=== PATIENT | female | born 1930 | race Caucasian/White ===

== ENCOUNTER 2018-12-15 17:35 | Emergency (ER) | payer MEDICARE ==
[~2018-12-15] VITALS: Ht 165.1 cm; Wt 72.7 kg
[~2018-12-15 17:35] MED LIST: ASPI81TA26 PO; AZELASTINE OU; CARV3.12 PO; CENTTAB PO; COLA50CA3 PO; CORE25TA PO; DOCQ100C5 PO; FISHOIL PO; LISI10TA4 PO; LISIPOW PO; MECL-68 PO; MECL1CHW PO; MOVE FREE PO; PLAV1TAB2 PO; PLAVIX PO; POLY1POW4 PO; PRAV20TA2 PO; SENO1TAB PO; SIMV10TA2 PO; VICO5TA PO; VITMTA PO; ZYRT10CA5 PO; ZYRT10TA14 PO
[2018-12-15] MEDS ORDERED: NS 500 ML IV ONE (18:15)
--- NOTE | 2018-12-15 18:47 | REP ---
CT Head without contrast HISTORY: Vertigo COMPARISON: 05/05/2007 Areas of decreased attenuation are present in the periventricular and subcortical white matter. This represents small-vessel ischemic disease. There is no intraparenchymal hemorrhage, acute infarct, mass or midline shift. The ventricular system and cortical sulci are dilated consistent with mild volume loss. There is no extra cerebral collection. There is no fracture. The visualized sinuses are clear. IMPRESSION: 1. Small vessel ischemic disease. 2. Mild volume loss. Electronically Signed by Kvng Parra MD 12/15/2018 06:38 P
--- NOTE | 2018-12-15 18:49 | REP ---
Chest one-view Comparison: 09/18/2016 An increase interstitial markings is present in the lower lobes consistent with chronic interstitial change. Linear densities are present in the right lower lobe consistent with atelectasis or scar. The heart is normal in size. The pulmonary vasculature is normal in appearance. Impression: 1. Bibasilar chronic interstitial change. 2. Right lower lobe atelectasis or scar. Electronically Signed by Kvng Parra MD 12/15/2018 06:41 P
[2018-12-15 18:53] LABS: BASO % 0.5 % (0.0-1.0); EOS # 0.3 10^3/uL (0.0-0.50); EOS % 3.9 % (0.0-3.0); HEMATOCRIT 43.3 % (36.0-47.0); HEMOGLOBIN 14.3 g/dl (12.0-15.5); LYMPH # 2.2 10^3/uL (1.5-4.5); LYMPH % 33.2 % (24.0-44.0); MEAN CORPUSCULAR HEMOGLOBIN 31.2 pg (27.0-33.0); MEAN CORPUSCULAR VOLUME 94.5 fl (80.0-96.0); MONO # 0.6 10^3/uL (0.0-0.8); MONO % 8.4 % (0.0-5.0); NEUTROPHILS # 3.6 10^3/uL (1.8-7.7); NEUTROPHILS % 53.7 % (36.0-66.0); PLATELET COUNT, AUTOMATED 229 10^3/uL (150-450); RED BLOOD COUNT 4.58 10^6/uL (4.00-5.40); WHITE BLOOD COUNT 6.7 10^3/uL (4.0-10.0)
[2018-12-15 19:24] LABS: INFLUENZA A AMPLIFICATION NEGATIVE (NEGATIVE); INFLUENZA B AMPLIFICATION NEGATIVE (NEGATIVE)
[2018-12-15 19:30] LABS: BLOOD UREA NITROGEN 33 MG/DL (7-18); CALCIUM LEVEL 9.2 MG/DL (8.8-10.2); CARBON DIOXIDE LEVEL 29 MEQ/L (21-32); CHLORIDE LEVEL 105 MEQ/L (98-107); CK-MB VALUE MASS < 1.0 NG/ML (<3.6); CPK CREATINE PHOSPHOKINASE 39 U/L (26-192); CREATININE FOR GFR 1.02 MG/DL (0.55-1.30); GLOMERULAR FILTRATION RATE 54.4 (>32); GLUCOSE, FASTING 97 MG/DL (70-100); MB/CK RELATIVE INDEX 2.56 (< OR =4); POTASSIUM SERUM 4.8 MEQ/L (3.5-5.1); SODIUM LEVEL 141 MEQ/L (136-145); TROPONIN I < 0.02 NG/ML (< 0.10)
[2018-12-15] MEDS ORDERED: ROLLMIS2 XX (20:12)
[2018-12-15 21:19] VITALS: BP 176/82
--- NOTE | 2018-12-16 06:35 | ECGEPIP ---
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
== END 2018-12-15 21:21 | disposition home or self-care (01) ==
LOC: M ED 17:35
DX: E86.0 Dehydration (principal); R42 Dizziness and giddiness; Z20.9 Contact with and (suspected) exposure to unspecified communicable disease; E78.5 Hyperlipidemia, unspecified; I10 Essential (primary) hypertension; Z88.2 Allergy status to sulfonamides; Z79.899 Other long term (current) drug therapy; Z79.02 Long term (current) use of antithrombotics/antiplatelets; Z79.82 Long term (current) use of aspirin

== ENCOUNTER 2019-07-10 00:47 | Inpatient (IN) | payer MEDICARE ==
[2019-07-09] MEDS: CARVedilol 3.125 MG TAB PO SCH (21:00)
[2019-07-09] MEDS: ASPIRIN 81 MG ENTERIC TAB PO SCH (21:00)
[~2019-07-10] VITALS: Ht 167.6 cm; Wt 71.0 kg
[~2019-07-10 00:47] MED LIST changes: +ROLLMIS2 XX
[2019-07-10 01:47] LABS: BASO % 0.3 % (0.0-1.0); EOS % 0.1 % (0.0-3.0); HEMATOCRIT 48.1 % (36.0-47.0); HEMOGLOBIN 16.3 g/dl (12.0-15.5); LYMPH % 8.8 % (24.0-44.0); MEAN CORPUSCULAR HEMOGLOBIN 32.5 pg (27.0-33.0); MEAN CORPUSCULAR HGB CONC 33.9 g/dl (32.0-36.5); MEAN CORPUSCULAR VOLUME 95.8 fl (80.0-96.0); MONO # 0.6 10^3/uL (0.0-0.8); MONO % 5.3 % (0.0-5.0); NEUTROPHILS % 85.2 % (36.0-66.0); PLATELET COUNT, AUTOMATED 207 10^3/uL (150-450); RED BLOOD COUNT 5.02 10^6/uL (4.00-5.40); WHITE BLOOD COUNT 11.8 10^3/uL (4.0-10.0)
[2019-07-10 02:29] LABS: ALBUMIN 3.8 GM/DL (3.2-5.2); ALT/SGPT 21 U/L (12-78); BILIRUBIN,DIRECT 0.2 MG/DL (0.0-0.2); BILIRUBIN,TOTAL 0.5 MG/DL (0.2-1.0); BLOOD UREA NITROGEN 25 MG/DL (7-18); CALCIUM LEVEL 9.2 MG/DL (8.8-10.2); CARBON DIOXIDE LEVEL 26 MEQ/L (21-32); CHLORIDE LEVEL 103 MEQ/L (98-107); CK-MB VALUE MASS < 1.0 NG/ML (<3.6); CPK CREATINE PHOSPHOKINASE 39 U/L (26-192); CREATININE FOR GFR 1.11 MG/DL (0.55-1.30); FREE THYROXINE INDEX 2.5 % (1.3-4.8); GLOMERULAR FILTRATION RATE 49.3 (>32); GLUCOSE, FASTING 144 MG/DL (70-100); MB/CK RELATIVE INDEX 2.56 (< OR =4); POTASSIUM SERUM 4.3 MEQ/L (3.5-5.1); SODIUM LEVEL 137 MEQ/L (136-145); T UPTAKE 39 % (30-39); THYROXINE (T4) 6.5 UG/DL (4.5-12.0); TROPONIN I < 0.02 NG/ML (< 0.10)
[2019-07-10] MEDS ORDERED: NS 500 ML IV ONE (03:00)
[2019-07-10 04:45] LABS: APPEARANCE, URINE HAZY (CLEAR); BACTERIA, URINE AUTO NEGATIVE (NEGATIVE); BILIRUBIN, URINE AUTO NEGATIVE (NEGATIVE); BLOOD, URINE BLOOD NEGATIVE (NEGATIVE); COLOR, URINE YELLOW (YELLOW); GLUCOSE, URINE (UA) AUTO NEGATIVE (NEGATIVE); KETONE, URINE AUTO NEGATIVE (NEGATIVE); LEUKOCYTE ESTERASE, URINE AUTO 1+ (NEGATIVE); MUCUS, URINE SMALL (NEGATIVE); NITRITE, URINE AUTO NEGATIVE (NEGATIVE); PROTEIN, URINE AUTO NEGATIVE (NEGATIVE); RBC, URINE AUTO 3 /HPF (0-3); SPECIFIC GRAVITY URINE AUTO 1.016 (1.002-1.035); SQUAMOUS EPITHELIAL CELL UR AU 0 /HPF (0-6); TRANSITIONAL EPITHELIAL AUTO <1 /HPF; UROBILINOGEN, URINE AUTO 0.2 mg/dL (0.0-2.0); WBC, URINE AUTO 3 /HPF (0-3)
[2019-07-10] MEDS ORDERED: MECL-86 PO (05:13)
[2019-07-10] MEDS ORDERED: REFR0.5D8 OU (05:13)
[2019-07-10] MEDS ORDERED: COLA100C5 PO (05:13)
[2019-07-10] MEDS ORDERED: ALL10TAB29 PO (05:13)
--- NOTE | 2019-07-10 05:44 | ECGEPIP ---
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
[2019-07-10] MEDS ORDERED: MOM 30ML SUSPENSION UDC PO PRN (05:45)
[2019-07-10] MEDS ORDERED: MAALOX 30 ML SUSP *UDC PO PRN (05:45)
[2019-07-10] MEDS ORDERED: MECLIZINE 25 MG TABLET PO PRN (05:45)
--- NOTE | 2019-07-10 05:45 | HPEPDOC ---
General Date of Admission 07/10/19 Date of Service: Jul 10, 2019 Primary Care Physician: MICHELLE CASPER M.D. Chief Complaint The patient is a 89-year-old female admitted with a reason for visit of Weakn ess/Fall. Source: Patient Exam Limitations: No limitations Timing/Duration: Other Severity: Other (long time) Associated Symptoms: Other History of Present Illness This is 89 years old white female with past medical history of sciatica, hypertension, seasonal allergies, dizziness, hyperlipidemia, hypertension, history of CVA, has been living independently at home. Home was last few months. She is unable to ambulate and perform her activities of daily living, her daughter comes once in a while to help her, but she is unable to ambulate now she can't even walk to the bathroom and she called EMS and was brought to ER for admission. Patient's lives at [facility] and she wishes to be admitted there as well. As per patient, she is unable to take care of herself at home Home Medications Scheduled Aspirin (Aspirin EC) 81 Mg Tab, 81 MG PO QHS, (Reported) Carvedilol (Carvedilol) 3.125 Mg Tab, 3.125 MG PO QHS, (Reported) Cetirizine HCl (Cetirizine HCl) 10 Mg Tablet, 10 MG PO DAILY, (Reported) Clopidogrel Bisulfate (Plavix) 75 Mg Tab, 75 MG PO DAILY, (Reported) Lisinopril (Lisinopril) 10 Mg Tab, 10 MG PO BID, (Reported) Multivitamins (Thera M Plus Tablet) 1 Tab Tab, 1 TAB PO DAILY, (Reported) Pravastatin Sodium (Pravastatin Sodium) 20 Mg Tab, 20 MG PO DAILY, (Reported) Scheduled PRN Carboxymethylcellulose Sodium (Refresh Tears) 15 Ml Drops, 1 DROP OU BID PRN for DRY EYES, (Reported) Docusate Sodium (Colace) 100 Mg Capsule, 100 MG PO QHS PRN for CONSTIPATION, (Reported) Meclizine HCl (Meclizine HCl) 25 Mg Tablet, 25 MG PO DAILY PRN for NAUSEA, (Reported) Allergies Coded Allergies: Sulfa (Sulfonamide Antibiotics) (Verified Allergy, Intermediate, RASH, 07/10/19) Past Medical History Medical History sciatica, hypertension, seasonal allergies, dizziness, hyperlipidemia, hypertension, history of CVA Surgical History Tonsillectomy in past Family History Significant Family History: No pertinent family hx Social History * Smoker: Denies Alcohol: Denies Drugs: denies A-FIB/CHADSVASC A-FIB History Current/History of A-Fib/PAF?: No Review of Systems Constitutional: Reports: Fatigue; Denies: Chills, Fever, Malaise, Night Sweats, Weakness, Weight Loss, Lethargy, Other Eyes: Denies: Pain, Vision change, Conjunctivae inflammation, Eyelid inflammation, Redness, Other ENT: Denies: Head Aches, Ear Pain, Dysphagia, Sinus Congestion, Post Nasal Drip, Sore Throat, Epistaxis, Other Symptoms Skin: Denies: Rash, Lesions, Jaundice, Bruising, Itching, Dry, Breakdown, Nail Changes, Other Pulmonary: Denies: Dyspnea, Cough, Pleuritic Chest Pain, Other Symptoms Cardiovascular: Denies: Chest Pain, Palpitations, Orthopnea, Paroxysmal Noc. Dyspnea, Edema, Lt Headedness, Other Symptoms Gastrointestinal: Denies: Nausea, Vomiting, Abdominal Pain, Diarrhea, Constipation, Melena, Hematochezia, Other Symptoms Genitourinary: Denies: Dysuria, Frequency, Incontinence, Hematuria, Retention, Other Symptoms Hematologic: Denies: Bruising, Bleeding Excessively, Petecchia, Purpura, Enlarged Lymph Nodes, Other Hematologic Musculoskeletal: Reports: Other Symptoms (, weakness) Neurological: Reports: Weakness (, generalized weakness) Psych: Denies: Mood Normal, Anxiety, Depression, Memory Issues, Thoughts of Self Harm, Anger, Thoughts of Harming Other, Other Psych Physical Examination General Exam: Positive: Alert, Cooperative Eye Exam: Positive: PERRLA, Conjunctiva & lids normal ENT Exam: Positive: Atraumatic, Mucous membr. moist/pink Neck Exam: Positive: Supple Chest Exam: Positive: Clear to auscultation, Normal air movement Heart Exam: Positive: Rate Normal, Normal S1, Normal S2 Abdomen Exam: Positive: Normal bowel sounds, Soft Extremity Exam: Positive: Normal pulses Skin Exam: Positive: Nl turgor and temperature Neuro Exam: Positive: Strength at 5/5 X4 ext, Sensation Intact Psych Exam: Positive: Mental status NL, Oriented x 3 Vital Signs Vital Signs Date Time Temp Pulse Resp B/P (MAP) Pulse Ox O2 Delivery O2 Flow Rate FiO2 07/10/19 05:17 77 98 07/10/19 05:16 153/67 (95) 07/10/19 05:02 14 07/10/19 03:56 Room Air 07/10/19 02:17 98.5 Laboratory Data Labs 24H Laboratory Tests 2 07/10/19 01:31: Immature Granulocyte % (Auto) 0.3, White Blood Count 11.8H, Red Blood Count 5.02, Hemoglobin 16.3H, Hematocrit 48.1H, Mean Corpuscular Volume 95.8, Mean C orpuscular Hemoglobin 32.5, Mean Corpuscular Hemoglobin Concent 33.9, Red Cell Distribution Width 13.2, Platelet Count 207, Neutrophils (%) (Auto) 85.2H, Lymphocytes (%) (Auto) 8.8L, Monocytes (%) (Auto) 5.3H, Eosinophils (%) (Auto) 0.1, Basophils (%) (Auto) 0.3, Neutrophils # (Auto) 10.0H, Lymphocytes # (Auto) 1.0L, Monocytes # (Auto) 0.6, Eosinophils # (Auto) 0.0, Basophils # (Auto) 0.0, Nucleated Red Blood Cells % (auto) 0.0, Anion Gap 8, Glomerular Filtration Rate 49.3, Calcium Level 9.2, Aspartate Amino Transf (AST/SGOT) 19, Alanine Aminotransferase (ALT/SGPT) 21, Alkaline Phosphatase 78, Total Bilirubin 0.5, Direct Bilirubin 0.2, Total Creatine Kinase 39, Creatine Kinase MB < 1.0, Crea evens Kinase MB Relative Index 2.56, Troponin I < 0.02, Total Protein 7.0, Albumin 3.8, Albumin/Globulin Ratio 1.19, Thyroid Stimulating Hormone (TSH) 1.410, Free Thyroxine Index 2.5, Thyroxine (T4) 6.5, Triiodothyronine (T3) Uptake 39 07/10/19 01:44: Bedside Glucose (Misc Panel) 163H 07/10/19 04:35: Urine Color YELLOW, Urine Appearance HAZY, Urine pH 5.0, Urine Specific [place] 1.016, Urine Protein NEGATIVE, Urine Glucose (Auto)(UA) NEGATIVE, Urine Ketones (Auto) NEGATIVE, Urine Blood NEGATIVE, Urine Nitrite NEGATIVE, Urine Bilirubin NEGATIVE, Urine Urobilinogen 0.2, Urine Leukocyte Esterase (Auto) 1+H, Urine WBC (Auto) 3, Urine RBC (Auto) 3, Urine Hyaline Casts (Auto) 0, Urine Bacteria (Auto) NEGATIVE, Urine Squamous Epithelial Cells 0, Urine Transitional Epithelial Cells <1, Urine Mucus (Auto) SMALL, Urine Sperm (Auto) CBC/BMP Laboratory Tests 07/10/19 01:31 Red Blood Count 5.02, Mean Corpuscular Volume 95.8, Mean Corpuscular Hemoglobin 32.5, Mean Corpuscular Hemoglobin Concent 33.9, Red Cell Distribution Width 13.2, Neutrophils (%) (Auto) 85.2 H, Lymphocytes (%) (Auto) 8.8 L, Monocytes (%) (Auto) 5.3 H, Eosinophils (%) (Auto) 0.1, Basophils (%) (Auto) 0.3, Neutrophils # (Auto) 10.0 H, Lymphocytes # (Auto) 1.0 L, Monocytes # (Auto) 0.6, Eosinophils # (Auto) 0.0, Basophils # (Auto) 0.0 Microbiology Microbiology 07/10/19 Urine Culture, Received Pending Problems (1) Unable to ambulate Status: Acute Problem Text: 89 years old white female who lives alone. Her is at [facility] came in with chief complaints of generalized weakness, unable to take care of herself and wishes to be placed in a skilled nursing for further bleeding since her lives. All basic workup including chest x-ray, EKG, CBC, CMP are essentially within normal limits Admit to MedSurg floor Continue all home meds Physical therapy consultation Diet 2 g sodium Activity out of bed with assistance DVT prophylaxis with heparin Social work consult called (2) Hospital admission due to social situation Status: Acute Problem Text: As above (3) HTN (hypertension) Status: Chronic Problem Text: Under well control Continue home meds (4) Hyperlipidemia Status: Chronic Problem Text: Continue home meds Plan / VTE VTE Prophylaxis Ordered?: Yes ARACELI SHEPPARD MD Jul 10, 2019 05:45
[2019-07-10] MEDS: HEPARIN SOD (PORCINE) 5000 UNITS/ML VIAL SC SCH ×2 (08:58→22:03)
[2019-07-10] MEDS: PRAVASTATIN 20 MG TAB PO SCH (08:58)
[2019-07-10] MEDS: CLOPIDOGREL 75 MG TAB PO SCH (08:58)
[2019-07-10] MEDS: MULTIVITAMINS/MINERALS THERAP 1 TAB PO SCH (08:58)
[2019-07-10] MEDS: CETIRIZINE (ZyrTEC) 10 MG TAB PO SCH (08:58)
[2019-07-10] MEDS: LISINOPRIL 10 MG TAB PO SCH ×2 (08:59→22:03)
[2019-07-10] MEDS: DOCUSATE SODIUM 100 MG CAP PO SCH ×2 (08:59→21:00)
[2019-07-10] MEDS: NS 1,000 ML IV SCH (09:45)
--- NOTE | 2019-07-10 13:04 | IPNPDOC ---
Date Seen The patient was seen on 07/10/19. Progress Note SUBJECTIVE: Patient was seen and examined this morning. She states that she has had diarrhea for the past two days. She denies any fevers but states that she does have chills. She denies any abdominal pain. She denies any blood in her stool. She states that before coming in she had difficulty ambulating because she felt "weak". Patient states that she continues to have diarrhea. OBJECTIVE PHYSICAL EXAMINATION: VITAL SIGNS: Please see below. GENERAL: Awake, alert, and oriented. Appears in no acute distress. Lying comfortably in bed. She is frail appearing HEENT: Atrauamtic normocephalic. Trachea is midline. eyes are nonicteric. CARDIOVASCULAR: Normal S1, S2. Regular rate and rhythm. No clicks rubs or murmurs RESPIRATORY: Clear vesicular breath sounds bilaterally. Slightly diminished in the bases bilaterally. Good respiratory effort. No wheezes, rhonchi or rales ABDOMINAL: Soft, nondistended. Nontender to palpation in all 4 quadrants. No rebound tenderness or guarding. Hyperactive bowel sounds EXTREMITIES: No edema. Full and equal pulses in bilateral upper and lower extrem ities NEUROLOGICAL: No focal neurological deficits PSYCHOLOGICAL: Mood and affect appear appropriate LABORATORY DATA, IMAGING STUDIES, MICROBIOLOGY: Please see below. DVT prophylaxis ordered?: Mechanical ASSESSMENT AND PLAN: Patient is an 89 year old female who presented to [facility] ER with complaint of weakness and diarrhea. Patient had diarrhea over the past 2 days. She had denied fevers but admitted to chills. Patient was admitted due to difficulty to ambulate. A GI panel was ordered and resulted positive for salmonella. Patient has received blood cultures which are pending and was starte d on Cipro 500mg BID PO. PROBLEMS: 1. Salmonella Enteritis -Patient has diarrhea with positive GI panel for salmonella. She has remained normotensive and afebrile. -Blood cultures pending -Start Cipro 500mg BID PO 2. Weakness and difficulty with ambulation -Patient has had difficultly with ADLs. She states this is chronic however getting worse. She has stated that she feels weaker since her diarrhea -Patient will likely need placement -PT/OT has been ordered 3. HTN -Currently controlled. Will continue home medications 4. Hyperlipidemia -Chronic -Patient will be continued on home medications VS, I&O, 24H, Fishbone Vital Signs/I&O Vital Signs Date Time Temp Pulse Resp B/P (MAP) Pulse Ox O2 Delivery O2 Flow Rate FiO2 07/10/19 12:00 72 20 138/64 (88) 93 Room Air 07/10/19 02:17 98.5 Laboratory Data 24H LABS Laboratory Tests 2 07/10/19 01:31: Immature Granulocyte % (Auto) 0.3, White Blood Count 11.8H, Red Blood Count 5.02, Hemoglobin 16.3H, Hematocrit 48.1H, Mean Corpuscular Volume 95.8, Mean Corpuscular Hemoglobin 32.5, Mean Corpuscular Hemoglobin Concent 33.9, Red Cell Distribution Width 13.2, Platelet Count 207, Neutrophils (%) (Auto) 85.2H, Lymphocytes (%) (Auto) 8.8L, Monocytes (%) (Auto) 5.3H, Eosinophils (%) (Auto) 0.1, Basophils (%) (Auto) 0.3, Neutrophils # (Auto) 10.0H, Lymphocytes # (Auto) 1.0L, Monocytes # (Auto) 0.6, Eosinophils # (Auto) 0.0, Basophils # (Auto) 0.0, Nucleated Red Blood Cells % (auto) 0.0, Anion Gap 8, Glomerular Filtration Rate 49.3, Calcium Level 9.2, Aspartate Amino Transf (AST/SGOT) 19, Alanine Aminotransferase (ALT/SGPT) 21, Alkaline Phosphatase 78, Total Bilirubin 0.5, Direct Bilirubin 0.2, Total Creatine Kinase 39, Creatine Kinase MB < 1.0, Creatine Kinase MB Relative Index 2.56, Troponin I < 0.02, Total Protein 7.0, Albumin 3.8, Albumin/Globulin Ratio 1.19, Thyroid Stimulating Hormone (TSH) 1.410, Free Thyroxine Index 2.5, Thyroxine (T4) 6.5, Triiodothyronine (T3) Uptake 39 07/10/19 01:44: Bedside Glucose (Misc Panel) 163H 07/10/19 04:35: Urine Color YELLOW, Urine Appearance HAZY, Urine pH 5.0, Urine Specific [place] 1.016, Urine Protein NEGATIVE, Urine Glucose (Auto)(UA) NEGATIVE, Urine Ketones (Auto) NEGATIVE, Urine Blood NEGATIVE, Urine Nitrite NEGATIVE, Urine Bilirubin NEGATIVE, Urine Urobilinogen 0.2, Urine Leukocyte Esterase (Auto) 1+H, Urine WBC (Auto) 3, Urine RBC (Auto) 3, Urine Hyaline Casts (Auto) 0, Urine Bacteria (A uto) NEGATIVE, Urine Squamous Epithelial Cells 0, Urine Transitional Epithelial Cells <1, Urine Mucus (Auto) SMALL, Urine Sperm (Auto) CBC/BMP Laboratory Tests 07/10/19 01:31 Red Blood Count 5.02, Mean Corpuscular Volume 95.8, Mean Corpuscular Hemoglobin 32.5, Mean Corpuscular Hemoglobin Concent 33.9, Red Cell Distribution Width 13.2, Neutrophils (%) (Auto) 85.2 H, Lymphocytes (%) (Auto) 8.8 L, Monocytes (%) (Auto) 5.3 H, Eosinophils (%) (Auto) 0.1, Basophils (%) (Auto) 0.3, Neutrophils # (Auto) 10.0 H, Lymphocytes # (Auto) 1.0 L, Monocytes # (Auto) 0.6, Eosinophils # (Auto) 0.0, Basophils # (Auto) 0.0 Microbiology Microbiology 07/10/19 Gastrointestinal Tract Panel (PCR) - Final, Resulted Salmonella 07/10/19 Urine Culture, Received Pending GME ATTESTATION GME ATTESTATION My faculty preceptor for this patient encounter was physically present during the encounter and was fully available. All aspects of the patient interview, examination, medical decision making process, and medical care plan development were reviewed and approved by the faculty preceptor. The faculty preceptor is aware and concurs with the plan as stated in the body of this note and will attest to such by his/her cosignature. ATTENDING NOTE I, Merari Thomas, have independently examined this patient and performed my own physical exam, as well as reviewed the documentation and edited where necessary. I have discussed in detail with the resident / student the findings and plan of treatment as documented by the resident / student and edited their note. I agree with their findings and treatment plan and have edited their documentation. I will continue to follow the patient during this hospital stay. JERONIMO AUGUSTE DO Jul 10, 2019 13:04 MERARI THOMAS MD Jul 10, 2019 15:42
[2019-07-10 14:10] VITALS: BP 160/77
[2019-07-10] MEDS: CIPROFLOXACIN 500 MG TAB PO SCH (17:46)
[2019-07-10 21:59] VITALS: BP 143/66
[2019-07-10] MEDS: ASPIRIN 81 MG ENTERIC TAB PO SCH (22:02)
[2019-07-10] MEDS: CARVedilol 3.125 MG TAB PO SCH (22:03)
[2019-07-10] MEDS ORDERED: LOPERAMIDE 2 MG CAPLET PO ONE (22:15)
[2019-07-11 00:15] VITALS: BP 142/66
[2019-07-11] MEDS: ACETAMINOPHEN TAB 650MG DOSE (2X325MG) PO PRN (00:54)
[2019-07-11] MEDS: NS 1,000 ML IV SCH (03:15)
[2019-07-11] MEDS: CIPROFLOXACIN 500 MG TAB PO SCH ×2 (05:47→17:01)
[2019-07-11 06:00] VITALS: BP 139/64
[2019-07-11] MEDS ORDERED: LOPERAMIDE 2 MG CAPLET PO PRN (06:00)
[2019-07-11 06:14] LABS: HEMATOCRIT 43.5 % (36.0-47.0); HEMOGLOBIN 14.5 g/dl (12.0-15.5); MEAN CORPUSCULAR HEMOGLOBIN 32.4 pg (27.0-33.0); MEAN CORPUSCULAR HGB CONC 33.3 g/dl (32.0-36.5); MEAN CORPUSCULAR VOLUME 97.3 fl (80.0-96.0); PLATELET COUNT, AUTOMATED 173 10^3/uL (150-450); RED BLOOD COUNT 4.47 10^6/uL (4.00-5.40); WHITE BLOOD COUNT 6.9 10^3/uL (4.0-10.0)
[2019-07-11] MEDS ORDERED: LOPERAMIDE 2 MG CAPLET PO ONE (06:15)
[2019-07-11 06:38] LABS: ALBUMIN 3.1 GM/DL (3.2-5.2); BILIRUBIN,TOTAL 0.7 MG/DL (0.2-1.0); CALCIUM LEVEL 8.2 MG/DL (8.8-10.2); CREATININE FOR GFR 1.17 MG/DL (0.55-1.30); GLOMERULAR FILTRATION RATE 46.4 (>32); POTASSIUM SERUM 3.6 MEQ/L (3.5-5.1); TOTAL PROTEIN 6.4 GM/DL (6.4-8.2)
[2019-07-11] MEDS: DOCUSATE SODIUM 100 MG CAP PO SCH ×2 (07:53→20:22)
[2019-07-11] MEDS: CLOPIDOGREL 75 MG TAB PO SCH (08:53)
[2019-07-11] MEDS: CETIRIZINE (ZyrTEC) 10 MG TAB PO SCH (08:53)
[2019-07-11] MEDS: PRAVASTATIN 20 MG TAB PO SCH (08:53)
[2019-07-11] MEDS: LISINOPRIL 10 MG TAB PO SCH ×2 (08:54→20:22)
[2019-07-11] MEDS: MULTIVITAMINS/MINERALS THERAP 1 TAB PO SCH (08:54)
[2019-07-11] MEDS: HEPARIN SOD (PORCINE) 5000 UNITS/ML VIAL SC SCH ×2 (08:54→20:22)
[2019-07-11] MEDS ORDERED: FLUBLOK(EGG FREE)(QUAD)INFLUENZA VACC 0.5ML SYRINGE (90682)18YRS&OLDER IM ONE (09:00)
--- NOTE | 2019-07-11 12:11 | IPNPDOC ---
Date Seen The patient was seen on 07/11/19. Progress Note SUBJECTIVE: Patient was seen and examined this morning. She has no new complaints. She has had continued diarrhea last night and was given loperamide. She has been started on Cipro given her positive stool PCR for salmonella. She currently denies any abdominal pain. She denies any chest pain or shortness of breath OBJECTIVE PHYSICAL EXAMINATION: VITAL SIGNS: Please see below. GENERAL: Awake, alert, and oriented. Appears in no acute distress. Sitting comfortably in chair eating breakfast HEENT: Atraumatic, normocephalic. Eyes are nonicteric. Trachea is midline CARDIOVASCULAR: Normal S1, S2. Regular rate and rhythm. No clicks rubs or murmurs RESPIRATORY: Clear vesicular breath sounds bilaterally. Slightly diminished in the bases with fine crackles. No wheezes or rhonchi. Good respiratory effort ABDOMINAL: Soft, nondistended. Nontender to palpation in all 4 quadrants. No rebound tenderness or guarding. Hyperactive bowel sounds EXTREMITIES: No edema. Full and equal pulses in bilateral upper and lower extremities NEUROLOGICAL: No focal neurological deficits PSYCHOLOGICAL: Mood and affect appear appropriate LABORATORY DATA, IMAGING STUDIES, MICROBIOLOGY: Please see below. DVT prophylaxis ordered?: Mechanical ASSESSMENT AND PLAN: Patient is an 89 year old female who presented to [facility] ER with complaint of weakness and diarrhea. Patient had diarrhea over the past 2 days. She had denied fevers but admitted to chills. Patient was admitted due to difficulty to ambulate. A GI panel was ordered and resulted positive for salmonella. Patient has received blood cultures which are pending and was started on Cipro 500mg BID PO. PROBLEMS: 1. Salmonella Enteritis -Patient has diarrhea with positive GI panel for salmonella. She has remained normotensive and afebrile. -Blood cultures pending -Cipro 500mg BID day 2 -Patient was given Loperamide. This has been discontinued in the setting of infectious diarrhea. 2. Weakness and difficulty with ambulation -Patient has had difficultly with ADLs. She states this is chronic however getting worse. She has stated that she feels weaker since her diarrhea -Patient will likely need placement -PT/OT has been ordered -Patient states that she feels that she can not live at home alone however, she is concerned about the financial situation as her is already at [facility]. 3. HTN -Currently controlled. Will continue home medications 4. Hyperlipidemia -Chronic -Patient will be continued on home medications Disposition: - Looking into placement options - Patient doesn't feel like she can live alone anymore VS, I&O, 24H, [place] Vital Signs/I&O Vital Signs Date Time Temp Pulse Resp B/P (MAP) Pulse Ox O2 Delivery O2 Flow Rate FiO2 07/11/19 08:54 139/64 07/11/19 06:00 97.1 64 20 97 07/10/19 12:00 Room Air I&O- Last 24 Hours up to 6 AM 07/11/19 06:00 Intake Total 1020 ml Output Total 0 ml Balance 1020 ml Laboratory Data 24H LABS Laboratory Tests 2 07/11/19 05:41: Nucleated Red Blood Cells % (auto) 0.0, Anion Gap 5L, Glomerular Filtration Rate 46.4, Blood Urea Nitrogen 26H, Creatinine 1.17, Sodium Level 136, Potassium Level 3.6, Chloride Level 105, Carbon Dioxide Level 26, Calcium Level 8.2L, Aspartate Amino Transf (AST/SGOT) 17, Alanine Aminotransferase (ALT/SGPT) 18, Alkaline Phosphatase 57, Total Bilirubin 0.7, Total Protein 6.4, Albumin 3.1L, Albumin/Globulin Ratio 0.94L CBC/BMP Laboratory Tests 07/11/19 05:41 Red Blood Count 4.47, Mean Corpuscular Volume 97.3 H, Mean Corpuscular Hemoglobin 32.4, Mean Corpuscular Hemoglobin Concent 33.3, Red Cell Distribution Width 13.5, Calcium Level 8.2 L, Aspartate Amino Transf (AST/SGOT) 17, Alanine Aminotransferase (ALT/SGPT) 18, Alkaline Phosphatase 57, Total Bilirubin 0.7, Total Protein 6.4, Albumin 3.1 L Microbiology Microbiology 07/10/19 Blood Culture, Received Pending 07/10/19 Gastrointestinal Tract Panel (PCR) - Final, Resulted Salmonella 07/10/19 Urine Culture - Final, Complete GME ATTESTATION GME ATTESTATION My faculty preceptor for this patient encounter was physically present during the encounter and was fully available. All aspects of the patient interview, examination, medical decision making process, and medical care plan development were reviewed and approved by the faculty preceptor. The faculty preceptor is aware and concurs with the plan as stated in the body of this note and will attest to such by his/her cosignature. ATTENDING NOTE I, Merari Thomas, have independently examined this patient and performed my own physical exam, as well as reviewed the documentation and edited where necessary. I have discussed in detail with the resident / student the findings and plan of treatment as documented by the resident / student and edited their note. I agree with their findings and treatment plan and have edited their documentation. I will continue to follow the patient during this hospital stay. JERONIMO AUGUSTE DO Jul 11, 2019 12:11 MERARI THOMAS MD Jul 11, 2019 15:40
[2019-07-11 14:00] VITALS: BP 146/79
[2019-07-11 20:20] VITALS: BP 132/63
[2019-07-11] MEDS: CARVedilol 3.125 MG TAB PO SCH (20:21)
[2019-07-11] MEDS: ASPIRIN 81 MG ENTERIC TAB PO SCH (20:21)
[2019-07-11 22:00] VITALS: BP 131/63
[2019-07-12] MEDS: CIPROFLOXACIN 500 MG TAB PO SCH ×2 (05:35→18:30)
[2019-07-12 06:00] VITALS: BP 133/62
[2019-07-12] MEDS: DOCUSATE SODIUM 100 MG CAP PO SCH ×2 (09:00→10:32)
[2019-07-12] MEDS: PRAVASTATIN 20 MG TAB PO SCH (10:30)
[2019-07-12] MEDS: MULTIVITAMINS/MINERALS THERAP 1 TAB PO SCH (10:30)
[2019-07-12] MEDS: LISINOPRIL 10 MG TAB PO SCH ×2 (10:31→20:35)
[2019-07-12] MEDS: CLOPIDOGREL 75 MG TAB PO SCH (10:32)
[2019-07-12] MEDS: CETIRIZINE (ZyrTEC) 10 MG TAB PO SCH (10:32)
[2019-07-12] MEDS: HEPARIN SOD (PORCINE) 5000 UNITS/ML VIAL SC SCH ×2 (10:33→20:35)
[2019-07-12] MEDS: LACTOBACILLUS ACIDOPHILUS CAP (BACID) PO SCH (13:43)
[2019-07-12 14:00] VITALS: BP_SYST 121; BP_DIAS 161; BP_DIAS 61
--- NOTE | 2019-07-12 15:20 | IPNPDOC ---
Date Seen The patient was seen on 07/12/19. Progress Note SUBJECTIVE: Patient was seen and examined this morning. She currently has no new complaints. She has stated that she had some diarrhea last night and this morning but overall her diarrhea has decreased. She continues to work with physical therapy. She will likely eventually need placement OBJECTIVE PHYSICAL EXAMINATION: VITAL SIGNS: Please see below. GENERAL: Awake, alert, and oriented. Appears in no acute distress. Sitting comfortably on edge of bed HEENT: Atraumatic, normocephalic. Eyes are nonicteric. Trachea is midline CARDIOVASCULAR: Normal S1, S2. Regular rate and rhythm. No clicks rubs or murmurs RESPIRATORY: Clear vesicular breath sounds bilaterally. Slightly diminished in the bases with fine crackles. No wheezes or rhonchi. Good respiratory effort ABDOMINAL: Soft, nondistended. Nontender to palpation in all 4 quadrants. No rebound tenderness or guarding. Hyperactive bowel sounds EXTREMITIES: No edema. Full and equal pulses in bilateral upper and lower extremities NEUROLOGICAL: No focal neurological deficits PSYCHOLOGICAL: Mood and affect appear appropriate LABORATORY DATA, IMAGING STUDIES, MICROBIOLOGY: Please see below. DVT prophylaxis ordered?: Mechanical ASSESSMENT AND PLAN: Patient is an 89 year old female who presented to [facility] ER with complaint of weakness and diarrhea. Patient had diarrhea over the past 2 days. She had denied fevers but admitted to chills. Patient was admitted due to difficulty to ambulate. A GI panel was ordered and resulted positive for salmonella. Patient has received blood cultures which are pending and was started on Cipro 500mg BID PO. She has had improvement in her diarrhea. Continues to work with physical therapy PROBLEMS: 1. Salmonella Enteritis -Patient has diarrhea with positive GI panel for salmonella. She has remained normotensive and afebrile. -Blood cultures pending -Cipro 500mg BID day 3 -Patient has shown improvement in her diarrhea. -Start Bacid 2. Weakness and difficulty with ambulation -Patient has had difficultly with ADLs. She states this is chronic however getting worse. She has stated that she feels weaker since her diarrhea -Patient will likely need placement -PT/OT has been ordered -Patient states that she feels that she can not live at home alone however, she is concerned about the financial situation as her is already at [facility]. 3. HTN -Currently controlled. Will continue home medications 4. Hyperlipidemia -Chronic -Patient will be continued on home medications DISPOSITION: Currently working with physical therapy. Will need chcf placement as she can not live alone I saw and evaluated the patient. I agree with the findings and plan of care as documented in the above note VS, I&O, 24H, Fishbone Vital Signs/I&O Vital Signs Date Time Temp Pulse Resp B/P (MAP) Pulse Ox O2 Delivery O2 Flow Rate FiO2 07/12/19 10:31 128/61 07/12/19 06:00 97.7 74 18 92 07/10/19 12:00 Room Air I&O- Last 24 Hours up to 6 AM 07/12/19 06:00 Intake Total 1750 ml Output Total 0 ml Balance 1750 ml Laboratory Data Microbiology Microbiology 07/10/19 Blood Culture - Preliminary, Resulted No Growth after 48 hours. All Specime... 07/10/19 Gastrointestinal Tract Panel (PCR) - Final, Resulted Salmonella 07/10/19 Urine Culture - Final, Complete JERONIMO AUGUSTE DO Jul 12, 2019 15:20 BEBETO BALES MD Jul 13, 2019 13:45
[2019-07-12] MEDS: ASPIRIN 81 MG ENTERIC TAB PO SCH (20:35)
[2019-07-12] MEDS: CARVedilol 3.125 MG TAB PO SCH (20:36)
[2019-07-12 22:00] VITALS: BP 121/63
[2019-07-13] MEDS: ACETAMINOPHEN TAB 650MG DOSE (2X325MG) PO PRN (00:23)
[2019-07-13] MEDS: CIPROFLOXACIN 500 MG TAB PO SCH ×2 (05:24→17:56)
[2019-07-13 06:00] VITALS: BP 118/65
[2019-07-13 06:09] LABS: HEMATOCRIT 38.9 % (36.0-47.0); HEMOGLOBIN 13.2 g/dl (12.0-15.5); MEAN CORPUSCULAR HEMOGLOBIN 31.8 pg (27.0-33.0); MEAN CORPUSCULAR HGB CONC 33.9 g/dl (32.0-36.5); MEAN CORPUSCULAR VOLUME 93.7 fl (80.0-96.0); PLATELET COUNT, AUTOMATED 183 10^3/uL (150-450); RED BLOOD COUNT 4.15 10^6/uL (4.00-5.40); WHITE BLOOD COUNT 5.1 10^3/uL (4.0-10.0)
[2019-07-13 06:32] LABS: CALCIUM LEVEL 8.4 MG/DL (8.8-10.2); CREATININE FOR GFR 1.1 MG/DL (0.55-1.30); GLOMERULAR FILTRATION RATE 49.8 (>32); POTASSIUM SERUM 3.4 MEQ/L (3.5-5.1)
[2019-07-13] MEDS ORDERED: POTASSIUM CHLORIDE 10 MEQ SR TABLET PO ONE (07:45)
[2019-07-13] MEDS: HEPARIN SOD (PORCINE) 5000 UNITS/ML VIAL SC SCH ×2 (08:19→20:40)
[2019-07-13] MEDS: LACTOBACILLUS ACIDOPHILUS CAP (BACID) PO SCH (08:20)
[2019-07-13] MEDS: DOCUSATE SODIUM 100 MG CAP PO SCH ×2 (08:21→20:34)
[2019-07-13] MEDS: PRAVASTATIN 20 MG TAB PO SCH (08:22)
[2019-07-13] MEDS: MULTIVITAMINS/MINERALS THERAP 1 TAB PO SCH (08:22)
[2019-07-13] MEDS: CETIRIZINE (ZyrTEC) 10 MG TAB PO SCH (08:22)
[2019-07-13] MEDS: LISINOPRIL 10 MG TAB PO SCH ×2 (08:40→20:41)
[2019-07-13] MEDS: CLOPIDOGREL 75 MG TAB PO SCH (08:40)
[2019-07-13 14:00] VITALS: BP 121/83
[2019-07-13] MEDS ORDERED: NS 1,000 ML IV ONE ×2 (14:15→15:15)
[2019-07-13 14:35] LABS: MAGNESIUM LEVEL 2.5 MG/DL (1.8-2.4)
--- NOTE | 2019-07-13 15:18 | IPNPDOC ---
Date Seen The patient was seen on 07/13/19. Progress Note SUBJECTIVE: Patient was seen and examined this morning. She does state that she has developed some bilateral heel pain which started at night. She states that she had received some Tylenol which helped improve the pain. She states that this morning the heel pain has improved. She states that currently she has had no diarrhea. She states that she does have an appetite but doesn't like the food . She denies any fevers, chills, nausea, vomiting, shortness of breath, or chest pain OBJECTIVE PHYSICAL EXAMINATION: VITAL SIGNS: Please see below. GENERAL:Awake, alert and oriented. Appears in no acute distress, Lying in bed comfortably. HEENT: Atraumatic, normocephalic. Eyes are nonicteric. trachea is midline. CARDIOVASCULAR: Normal S1, S2. Regular rate and rhythm. No clicks, rubs, or murmurs. RESPIRATORY: Clear vesicular breath sounds bilaterally. Fine crackles in the bases. No wheezes. Good respiratory effort. Kyphosis of spine. Symmetric chest rise. ABDOMINAL: Soft, nondistended. Nontender to palpation in all 4 quadrants. No rebound tenderness or guarding. Normoactive bowel sounds throughout EXTREMITIES: No edema. Full and equal pulses in bilateral upper and lower extremities. No tenderness to palpation of calves or plantar fascia NEUROLOGICAL: No focal neurological deficits PSYCHOLOGICAL: Mood and affect appear appropriate LABORATORY DATA, IMAGING STUDIES, MICROBIOLOGY: Please see below. DVT prophylaxis ordered?: Mechanical ASSESSMENT AND PLAN: Patient is an 89 year old female who presented to [facility] ER with complaint of weakness and diarrhea. Patient had diarrhea over the past 2 days. She had denied fevers but admitted to chills. Patient was admitted due to difficulty to ambulate. A GI panel was ordered and resulted positive for salmonella. Patient has received blood cultures which have been negative. She has been on Cipro 500mg BID PO and is currently on day 4/7. She has had improvement in her diarrhea. Continues to work with physical therapy PROBLEMS: 1.1. Salmonella Enteritis -Patient has diarrhea with positive GI panel for salmonella. She has remained normotensive and afebrile. -Blood cultures pending -Cipro 500mg BID day 4 out of 7 -Continue bacid -Has been without diarrhea today 2. Weakness and difficulty with ambulation -Patient has had difficultly with ADLs. She states this is chronic however getting worse. She has stated that she feels weaker since her diarrhea -Patient will likely need placement -PT/OT has been ordered -Patient will likely need placement 3. HTN -Currently controlled. Will continue home medications 4. Hyperlipidemia -Chronic -Patient will be continued on home medications 5. Bilateral Heel Pain -Patient has had bilateral heel pain that started yesterday. Her Mg was 2.5. -Will supplement with IV fluids. She has not received any supplemental Mg. -Will monitor Mg. DISPOSITION: Currently working with physical therapy. Will need long term care phlebotomist placement as she can not live alone I saw and evaluated the patient. I agree with the findings and plan of care as d ocumented in the above note VS, I&O, 24H, Fishbone Vital Signs/I&O Vital Signs Date Time Temp Pulse Resp B/P (MAP) Pulse Ox O2 Delivery O2 Flow Rate FiO2 07/13/19 08:40 126/65 07/13/19 06:00 96.9 64 17 92 07/10/19 12:00 Room Air I&O- Last 24 Hours up to 6 AM 07/13/19 05:59 Intake Total 926 ml Output Total 200 ml Balance 726 ml Laboratory Data 24H LABS Laboratory Tests 2 07/13/19 05:35: Nucleated Red Blood Cells % (auto) 0.0, Anion Gap 6L, Glomerular Filtration Rate 49.8, Calcium Level 8.4L, Magnesium Level 2.5H CBC/BMP Laboratory Tests 07/13/19 05:35 Microbiology Microbiology 07/10/19 Blood Culture - Preliminary, Resulted No Growth after 72 hours. All specime... 07/10/19 Gastrointestinal Tract Panel (PCR) - Final, Resulted Salmonella 07/10/19 Urine Culture - Final, Complete JERONIMO AUGUSTE DO Jul 13, 2019 15:18 BEBETO BALES MD Jul 14, 2019 13:06
[2019-07-13] MEDS: ASPIRIN 81 MG ENTERIC TAB PO SCH (20:41)
[2019-07-13] MEDS: CARVedilol 3.125 MG TAB PO SCH (20:41)
[2019-07-13 22:00] VITALS: BP 132/64
[2019-07-14] MEDS: CIPROFLOXACIN 500 MG TAB PO SCH (05:21)
[2019-07-14 06:00] VITALS: BP 142/72
[2019-07-14 06:27] LABS: HEMATOCRIT 40.7 % (36.0-47.0); HEMOGLOBIN 13.7 g/dl (12.0-15.5); MEAN CORPUSCULAR HEMOGLOBIN 31.4 pg (27.0-33.0); MEAN CORPUSCULAR HGB CONC 33.7 g/dl (32.0-36.5); MEAN CORPUSCULAR VOLUME 93.1 fl (80.0-96.0); PLATELET COUNT, AUTOMATED 217 10^3/uL (150-450); RED BLOOD COUNT 4.37 10^6/uL (4.00-5.40); WHITE BLOOD COUNT 7.2 10^3/uL (4.0-10.0)
[2019-07-14 06:54] LABS: BLOOD UREA NITROGEN 23 MG/DL (7-18); CALCIUM LEVEL 8.3 MG/DL (8.8-10.2); CARBON DIOXIDE LEVEL 26 MEQ/L (21-32); CHLORIDE LEVEL 110 MEQ/L (98-107); CREATININE FOR GFR 0.91 MG/DL (0.55-1.30); GLOMERULAR FILTRATION RATE > 60.0 (>32); GLUCOSE, FASTING 95 MG/DL (70-100); MAGNESIUM LEVEL 2.2 MG/DL (1.8-2.4); POTASSIUM SERUM 3.8 MEQ/L (3.5-5.1); SODIUM LEVEL 141 MEQ/L (136-145)
[2019-07-14 08:42] VITALS: BP 139/72
[2019-07-14] MEDS: LISINOPRIL 10 MG TAB PO SCH (08:42)
[2019-07-14] MEDS: LACTOBACILLUS ACIDOPHILUS CAP (BACID) PO SCH (08:42)
[2019-07-14] MEDS: HEPARIN SOD (PORCINE) 5000 UNITS/ML VIAL SC SCH (08:42)
[2019-07-14] MEDS: MULTIVITAMINS/MINERALS THERAP 1 TAB PO SCH (08:42)
[2019-07-14] MEDS: CETIRIZINE (ZyrTEC) 10 MG TAB PO SCH (08:42)
[2019-07-14] MEDS: PRAVASTATIN 20 MG TAB PO SCH (08:42)
[2019-07-14] MEDS: CLOPIDOGREL 75 MG TAB PO SCH (08:42)
[2019-07-14] MEDS: DOCUSATE SODIUM 100 MG CAP PO SCH (08:42)
[2019-07-14] MEDS ORDERED: RISATAB3 PO (09:35)
--- NOTE | 2019-07-14 18:56 | DS.PDOC ---
Discharge Summary General Date of Admission Jul 10, 2019 at 05:34 Date of Discharge 07/14/19 Primary Care Physician: MICHELLE CASPER M.D. Attending Physician: BEBETO BALES MD Discharge Summary PROCEDURES PERFORMED DURING STAY: None. ADMITTING DIAGNOSES: 1. Gastroenteritis 2. Generalized weakness DISCHARGE DIAGNOSES: 1. Salmonella gastroenteritis COMPLICATIONS/CHIEF COMPLAINT: Unable To Ambulate. HISTORY OF PRESENT ILLNESS: Patient is an 89-year-old female who presented to [facility] emergency department for complaint of generalized weakness and diarrhea. Patient stated that she had developed diarrhea over the past 2 days before her admission. She denies any fevers, however, stated that she did have occasional chills. She stated that she had diarrhea which was watery without blood. She states that she develops weakness in her legs and was unable to do her daily activities. Patient was found to have a slightly elevated white blood cell count. She was otherwise vitally stable. Hospitalist service was subsequently contacted for admission and management of the patient's generalized weakness On admission, patient elaborated that her diarrhea was a new issue. A GI panel was ordered which was positive for salmonella. Patient was started on ciprofloxacin 500 mg twice a day as well as Bacid. A GI panel was ordered which demonstrated positive for salmonella. Patient was started on ciprofloxacin 500 mg twice a day as well as Bacid. During the course hospital rosacea. The patient was continued on her antibiotic treatment. She had resolution of her diarrhea. She completed antibiotic therapy. Patient was seen by physical therapy and subsequently discharged to [facility]. DISCHARGE MEDICATIONS: Please see below. ALLERGIES: Please see below. PHYSICAL EXAMINATION ON DISCHARGE: VITAL SIGNS: Please see below. GENERAL: Awake, alert and oriented, appears in no acute distress, lying comfortable in bed. She is conversant and pleasant HEENT: Atraumatic, normocephalic. Eyes nonicteric. Trachea is midline NECK:. No palpable cervical, axillary or supraclavicular adenopathy CARDIOVASCULAR EXAMINATION: Normal S1, S2, regular rate and rhythm. No clicks, rubs or murmurs RESPIRATORY EXAMINATION:. Clear vesicular breath sounds bilaterally with fine crackles in the bases. No wheeze.. Good respiratory effort. Kyphosis of the s pine. Symmetric chest rise bilaterally ABDOMINAL EXAMINATION: Soft, nondistended, nontender to palpation and all 4 quadrants. No rebound tenderness or guarding. Normoactive bowel sounds throughout EXTREMITIES:. No edema. Full and equal pulses in bilateral upper and lower extremities SKIN: No rashes or lesions NEUROLOGICAL EXAMINATION:. No focal neurological deficits PSYCHIATRIC EXAMINATION:. Mood and affect appear appropriate LABORATORY DATA: Please see below. PROGNOSIS: GOOD ACTIVITY: As tolerated. DIET: tolerated DISCHARGE PLAN: Patient is to be discharged to [facility]. She has completed her antibiotic treatment. She is to continue Bacid for 1 week. She is to follow-up with her PCP in 7-10 days. She is to return to the ER if her symptoms return or worsen DISPOSITION: [facility]. DISCHARGE CONDITION: Stable. I saw and evaluated the patient. I agree with the findings and plan of care as documented in the documenters note. I spent 45 minutes coordinating this patient's discharge. Vital Signs/I&Os Vital Signs Date Time Temp Pulse Resp B/P (MAP) Pulse Ox O2 Delivery O2 Flow Rate FiO2 07/14/19 08:42 139/72 07/14/19 06:00 98.0 63 16 96 Room Air I&O- Last 24 Hours up to 6 AM 07/14/19 06:00 Intake Total 2260 ml Output Total 1350 ml Balance 910 ml Laboratory Data Labs 24H Laboratory Tests 2 07/14/19 05:43: Nucleated Red Blood Cells % (auto) 0.0, Anion Gap 5L, Glomerular Filtration Rate > 60.0, Calcium Level 8.3L, Magnesium Level 2.2 CBC/BMP Laboratory Tests 07/14/19 05:43 Microbiology Microbiology 07/10/19 Blood Culture - Preliminary, Resulted No Growth after 72 hours. All specime... 07/10/19 Gastrointestinal Tract Panel (PCR) - Final, Resulted Salmonella 07/10/19 Urine Culture - Final, Complete Discharge Medications Scheduled Aspirin (Aspirin EC) 81 Mg Tab, 81 MG PO QHS, (Reported) Carvedilol (Carvedilol) 3.125 Mg Tab, 3.125 MG PO QHS, (Reported) Cetirizine HCl (Cetirizine HCl) 10 Mg Tablet, 10 MG PO DAILY, (Reported) Clopidogrel Bisulfate (Plavix) 75 Mg Tab, 75 MG PO DAILY, (Reported) L.acidoph/L.bulg/B.bif/S.therm (Marlys-Bid Caplet) 1 Each Tablet, 2 EA PO DAILY Lisinopril (Lisinopril) 10 Mg Tab, 10 MG PO BID, (Reported) Multivitamins (Thera M Plus Tablet) 1 Tab Tab, 1 TAB PO DAILY, (Reported) Pravastatin Sodium (Pravastatin Sodium) 20 Mg Tab, 20 MG PO DAILY, (Reported) Scheduled PRN Carboxymethylcellulose Sodium (Refresh Tears) 15 Ml Drops, 1 DROP OU BID PRN for DRY EYES, (Reported) Docusate Sodium (Colace) 100 Mg Capsule, 100 MG PO QHS PRN for CONSTIPATION, (Reported) Meclizine HCl (Meclizine HCl) 25 Mg Tablet, 25 MG PO DAILY PRN for NAUSEA, (Reported) Allergies Coded Allergies: Sulfa (Sulfonamide Antibiotics) (Verified Allergy, Intermediate, RASH, 07/10/19) JERONIMO AUGUSTE DO Jul 14, 2019 18:56 BEBETO BALES MD Jul 16, 2019 14:44
== END 2019-07-14 11:40 | DRG 869 ==
LOC: M ED 00:47 → M ED INP 05:34 → M MSPAV 14:07
PROVIDERS: ADMIT Internal Medicine; ATTEND Internal Medicine
DX: A02.9 Salmonella infection, unspecified (principal); R53.1 Weakness; Z79.82 Long term (current) use of aspirin; Z79.899 Other long term (current) drug therapy; Z88.2 Allergy status to sulfonamides; I10 Essential (primary) hypertension; E78.5 Hyperlipidemia, unspecified; Z86.73 Personal history of transient ischemic attack (TIA), and cerebral infarction without residual deficits

== ENCOUNTER → 2019-07-24 | Outpatient (REF) ==
[~2019-07-24] MED LIST changes: +ALL10TAB29 PO; +COLA100C5 PO; +MECL-86 PO; +REFR0.5D8 OU; +RISATAB3 PO
[2019-07-24 08:00] LABS: HEMATOCRIT 38.6 % (36.0-47.0); HEMOGLOBIN 12.9 g/dl (12.0-15.5); MEAN CORPUSCULAR HEMOGLOBIN 32.7 pg (27.0-33.0); MEAN CORPUSCULAR HGB CONC 33.4 g/dl (32.0-36.5); MEAN CORPUSCULAR VOLUME 97.7 fl (80.0-96.0); PLATELET COUNT, AUTOMATED 391 10^3/uL (150-450); RED BLOOD COUNT 3.95 10^6/uL (4.00-5.40); WHITE BLOOD COUNT 6.9 10^3/uL (4.0-10.0)
[2019-07-24 08:28] LABS: ALBUMIN 2.8 GM/DL (3.2-5.2); ALT/SGPT 20 U/L (12-78); BILIRUBIN,TOTAL 0.6 MG/DL (0.2-1.0); BLOOD UREA NITROGEN 20 MG/DL (7-18); CARBON DIOXIDE LEVEL 28 MEQ/L (21-32); CHLORIDE LEVEL 106 MEQ/L (98-107); CREATININE FOR GFR 0.93 MG/DL (0.55-1.30); GLOMERULAR FILTRATION RATE > 60.0 (>32); GLUCOSE, FASTING 95 MG/DL (70-100); POTASSIUM SERUM 4.6 MEQ/L (3.5-5.1); SODIUM LEVEL 139 MEQ/L (136-145); TOTAL PROTEIN 6.1 GM/DL (6.4-8.2)
== END ==
LOC: SKLAB2 07:00
PROVIDERS: ATTEND Internal Medicine
DX: I25.10 Atherosclerotic heart disease of native coronary artery without angina pectoris (principal); I10 Essential (primary) hypertension

== ENCOUNTER → 2020-01-09 | Outpatient (REF) | payer MEDICARE ==
[2020-01-09 07:56] LABS: HEMATOCRIT 47.7 % (36.0-47.0); HEMOGLOBIN 15.6 g/dl (12.0-15.5); MEAN CORPUSCULAR HEMOGLOBIN 30.6 pg (27.0-33.0); MEAN CORPUSCULAR HGB CONC 32.7 g/dl (32.0-36.5); MEAN CORPUSCULAR VOLUME 93.7 fl (80.0-96.0); PLATELET COUNT, AUTOMATED 233 10^3/uL (150-450); RED BLOOD COUNT 5.09 10^6/uL (4.00-5.40); WHITE BLOOD COUNT 6.8 10^3/uL (4.0-10.0)
[2020-01-09 08:25] LABS: ALBUMIN 3.4 GM/DL (3.2-5.2); ALT/SGPT 22 U/L (12-78); BILIRUBIN,TOTAL 0.5 MG/DL (0.2-1.0); BLOOD UREA NITROGEN 15 MG/DL (7-18); CALCIUM LEVEL 8.9 MG/DL (8.8-10.2); CARBON DIOXIDE LEVEL 27 MEQ/L (21-32); CHLORIDE LEVEL 103 MEQ/L (98-107); CREATININE FOR GFR 0.88 MG/DL (0.55-1.30); GLOMERULAR FILTRATION RATE > 60.0 (>32); GLUCOSE, FASTING 95 MG/DL (70-100); POTASSIUM SERUM 3.8 MEQ/L (3.5-5.1); SODIUM LEVEL 139 MEQ/L (136-145); TOTAL PROTEIN 7.2 GM/DL (6.4-8.2)
== END ==
LOC: SKLAB2 07:00
PROVIDERS: ATTEND Internal Medicine
DX: I25.10 Atherosclerotic heart disease of native coronary artery without angina pectoris (principal); I10 Essential (primary) hypertension

== ENCOUNTER → 2020-02-06 | Outpatient (REF) | LOC: SKLAB2 07:00 | PROVIDERS: ATTEND Internal Medicine | DX: Z03.818 Encounter for observation for suspected exposure to other biological agents ruled out (principal) ==

== ENCOUNTER → 2020-02-13 | Outpatient (REF) | payer MEDICARE ==
[2020-02-13 09:50] LABS: CHOLESTEROL RISK RATIO 4.276 (<5)
== END ==
LOC: SKLAB2 07:00
PROVIDERS: ATTEND Internal Medicine
DX: E78.5 Hyperlipidemia, unspecified (principal)